=== PATIENT | male | born 1990 | race Caucasian/White ===

== ENCOUNTER 2021-06-08 06:38 | Emergency (ER) | payer OTHER ==
[~2021-06-08 06:38] MED LIST: PAXIL40 MG PO
[2021-06-08 06:57] LABS: HEMOGLOBIN 15.7 gm/dl (14.0-17.5); RED BLOOD COUNT 5.28 M/UL (4.20-5.50)
[2021-06-08 07:24] LABS: BUN/CREATININE RATIO 10 (0-10)
[2021-06-08] MEDS ORDERED: IBUPROFEN600 MG PO (08:13)
[2021-06-08] MEDS ORDERED: NORFLEX 100 MG100 MG PO (08:13)
== END 2021-06-08 08:20 | disposition home or self-care (01) ==
LOC: ER1 06:38
PROVIDERS: Physician Assistant Medical
DX: S16.1XXA Strain of muscle, fascia and tendon at neck level, initial encounter (principal); S39.012A Strain of muscle, fascia and tendon of lower back, initial encounter; V49.9XXA Car occupant (driver) (passenger) injured in unspecified traffic accident, initial encounter
CPT/HCPCS: 70450; 71045; 72125; 72128; 72131; 73564; 80053; 80307; 85025; 99284; G0480